=== PATIENT | male | born 1990 | race Caucasian/White ===

== ENCOUNTER 2021-02-24 06:20 | Inpatient (IN) | payer BC, SELFPAY ==
[2021-02-24] VITALS (15 sets, daily range): BP systolic 108–151; BP diastolic 55–80; PULSE 62–95; RESP 16–20; TEMP 36.1–37.5; O2SAT 96–100; BMI 26.1
--- NOTE | ~2021-02-24 | CT_ITS ---
EXAMINATION: CT ABDOMEN AND PELVIS WITH CONTRAST CLINICAL INFORMATION: Right lower quadrant pain COMPARISON: None TECHNIQUE: Multidetector volumetric images were obtained from the superior aspect of the liver through the pubic symphysis following administration 85 mL of Omnipaque 350 intravenous contrast. Sagittal and coronal reformatted images were obtained on the technologist's workstation. Oral contrast: No This CT examination was performed using dose optimization techniques as appropriate, variously including the following: *Automated exposure control *Adjustment of mA and/or kV according to patient size (this includes techniques or standardized protocols for targeted exams where dose is matched to indication/reason for exam; i.e. extremities or head) *Use of iterative reconstruction technique DLP: 491 mGy-cm FINDINGS: LUNG BASES: The visualized lung bases are unremarkable. LIVER, GALLBLADDER, AND BILIARY TREE: The liver is normal in size, shape, and attenuation. No focal hepatic lesion or biliary ductal dilatation is present. The gallbladder is unremarkable with no evidence of radiopaque gallstones, gallbladder wall thickening, or obvious pericholecystic inflammatory changes. PANCREAS: Unremarkable. No mass or peripancreatic inflammatory change. SPLEEN: Unremarkable. ADRENAL GLANDS: Right adrenal gland unremarkable. There is a lipid rich left adrenal gland adenoma measuring approximately 1.1 x 1.7 x 1.1 cm per KIDNEYS AND URETERS: The kidneys are normal in size, shape, and attenuation. No hydronephrosis, hydroureter, or calculi seen. No perinephric stranding. There is a subcentimeter cyst seen upper pole of the left kidney. BLADDER: Unremarkable. GASTROINTESTINAL TRACT: No dilated loops of large or small bowel are evident. No significant free fluid. No free air. Within the right lower quadrant there appears to be an appendicolith with dilated appendix and periappendiceal soft tissue stranding consistent with acute appendicitis. ABDOMINAL WALL: No significant hernia is appreciated. LYMPH NODES: No lymphadenopathy appreciated. VASCULAR: Unremarkable. PELVIC VISCERA: No suspicious pelvic mass. OSSEOUS STRUCTURES: Unremarkable. CT/CT abdomen pelvis w con IMPRESSION: Findings suspicious for acute appendicitis. No evidence of obstructive uropathy. Left adrenal gland lipid rich adenoma.
--- NOTE | 2021-02-24 07:00 | ED.ABDPAIN ---
HPI - Abdominal Pain General Chief Complaint: Abdominal Pain Stated Complaint: abdominal pain, vomiting Time Seen by Provider: 02/24/21 06:58 Source: patient Mode of arrival: ambulatory Limitations: no limitations History of Present Illness HPI narrative: This is a 50 years old male presented to the ED with 24 hour history of right lower quadrant abdominal pain agitated today chest, nausea vomiting MD elicited complaint: abdominal pain Pertinent past history: none Onset (ago): day(s) (1 day) Pain Consistency: constant Location: RLQ Severity: moderate Quality: cramping Exacerbating factors: nothing Relieving factors: nothing Related Data Allergies Allergy/AdvReac Type Severity Reaction Status Date / Time sulfamethoxazole Allergy Hives Verified 02/24/21 06:31 [From ] trimethoprim [From ] Allergy Hives Verified 02/24/21 06:31 Review of Systems Review of Systems Yes all other systems are reviewed and are negative Cardiovascular: Reports no additional cardiovascular complaints Respiratory: Reports no additional respiratory complaints Reports system reviewed and no additional complaints, except as documented Physical Exam Vital Signs: Vital Signs: Last Vital Signs Temp 98.8 F 02/24/21 08:17 Pulse 64 02/24/21 09:30 Resp 16 02/24/21 09:30 BP 124/65 02/24/21 09:30 Pulse Ox 100 02/24/21 09:30 Body Mass Index 26.1 Const: General: cooperative and anxious Orientation/consciousness: oriented to person, oriented to place, oriented to time and patient oriented x3 HENMT: Head: Yes normal to inspection and Yes No palpable skull fracture present Eyes: General: appearance normal, both eyes and all related structures Visual Rayo: normal visual rayo by confrontation Eyelids: Yes eyelids normal Neck: Neck: Yes normal visual inspection, Yes full ROM and Yes no lymphadenopathy Chest: Chest palpation & inspection: normal inspection of the chest Resp: Effort & Inspection: normal respiratory effort and able to speak in complete sentences Cardio: Rate: regular rate Rhythm: regular rhythm GI: Inspection: Yes normal to inspection Palpation (GI): Soft to palpation and Tenderness to palpation present (GI) in the RLQ Skin: General skin exam: no rashes or lesions noted and turgor normal Neuro: General: oriented to person, oriented to place, oriented to time and patient oriented x3 Course Course Course Narrative: CT scan consistent with acute appendicitis, case was discussed with the on-call surgeon Dr. Malinda Arora MDM - Abdominal Pain Lab Data Attestation: I reviewed the patient's lab results. Result diagrams: 02/24/21 07:03 02/24/21 07:03 Labs: Lab Results 02/24/21 02/24/21 02/24/21 Range/Units 07:03 07:03 07:03 WBC 17.8 H (4.8-10.8) X10*3/uL RBC 4.90 (4.60-5.80) X10*6/uL Hgb 15.9 (14.0-18.0) g/dl Hct 45.0 (42-52) % MCV 91.8 (80-98) fL MCH 32.4 (27.0-33.0) pg MCHC 35.3 (31.0-36.0) g/dl RDW 11.4 (11.0-16.0) % Plt Count 337 (160-400) X10*3/uL MPV 9.1 L (9.4-12.4) fL Immature Gran % (Auto) 0.3 (0.0-0.4) % Neut % (Auto) 87.7 H (45-73) % Lymph % (Auto) 6.2 L (20-40) % [place] % (Auto) 5.5 (2-11) % Eos % (Auto) 0.1 (0-4) % Baso % (Auto) 0.2 (0-2) % Lymph # (Auto) 1.1 L (1.2-4.9) X10*3/uL [place] # (Auto) 1.0 (0.1-1.2) X10*3/uL Eos # (Auto) 0.0 (0.0-0.4) X10*3/uL Baso # (Auto) 0.0 (0.0-0.2) X10*3/uL Abs Immat Gran (auto) 0.06 H (0.00-0.03) X10*3/uL Absolute Neuts (auto) 15.6 H (2.0-8.3) X10*3/uL Absolute Nucleated RBC 0.000 (0.0-0.012) X10*3/uL Nucleated RBC % (auto) 0.0 (0.0-0.2) /100WBC Sodium 137 (135-145) mmol/L Potassium 5.0 (3.3-5.1) mmol/L Chloride 103 (96-108) mmol/L Carbon Dioxide 25 (22-29) mmol/L Anion Gap 14 (12-20) BUN 13 (9-16) mg/dL Creatinine 1.27 (0.5-1.4) mg/dL Estim Creat Clear Calc 76.7 Estimated GFR > 60 Random Glucose 121 H (60-115) mg/dL Calcium 9.7 (8.4-10.2) mg/dL Total Bilirubin 1.8 H (0.0-1.0) mg/dL AST 24 (5-37) U/L ALT 21 (0-40) U/L Alkaline Phosphatase 56 (39-117) U/L Total Protein 7.2 (6.5-8.0) g/dL Albumin 4.6 (3.5-5.0) g/dL Lipase 62 (8-78) U/L Urine Color Urine Appearance Urine pH (5.0-8.0) Ur Specific [place] (1.005-1.025) Urine Protein (NEG-TRACE) MG/DL Urine Glucose (UA) (NEG) MG/DL Urine Ketones (NEG) MG/DL Urine Blood (NEG) Urine Nitrite (NEG) Ur Leukocyte Esterase (NEG) 02/24/21 Range/Units 08:08 WBC (4.8-10.8) X10*3/uL RBC (4.60-5.80) X10*6/uL Hgb (14.0-18.0) g/dl Hct (42-52) % MCV (80-98) fL MCH (27.0-33.0) pg MCHC (31.0-36.0) g/dl RDW (11.0-16.0) % Plt Count (160-400) X10*3/uL MPV (9.4-12.4) fL Immature Gran % (Auto) (0.0-0.4) % Neut % (Auto) (45-73) % Lymph % (Auto) (20-40) % [place] % (Auto) (2-11) % Eos % (Auto) (0-4) % Baso % (Auto) (0-2) % Lymph # (Auto) (1.2-4.9) X10*3/uL [place] # (Auto) (0.1-1.2) X10*3/uL Eos # (Auto) (0.0-0.4) X10*3/uL Baso # (Auto) (0.0-0.2) X10*3/uL Abs Immat Gran (auto) (0.00-0.03) X10*3/uL Absolute Neuts (auto) (2.0-8.3) X10*3/uL Absolute Nucleated RBC (0.0-0.012) X10*3/uL Nucleated RBC % (auto) (0.0-0.2) /100WBC Sodium (135-145) mmol/L Potassium (3.3-5.1) mmol/L Chloride (96-108) mmol/L Carbon Dioxide (22-29) mmol/L Anion Gap (12-20) BUN (9-16) mg/dL Creatinine (0.5-1.4) mg/dL Estim Creat Clear Calc Estimated GFR Random Glucose (60-115) mg/dL Calcium (8.4-10.2) mg/dL Total Bilirubin (0.0-1.0) mg/dL AST (5-37) U/L ALT (0-40) U/L Alkaline Phosphatase (39-117) U/L Total Protein (6.5-8.0) g/dL Albumin (3.5-5.0) g/dL Lipase (8-78) U/L Urine Color YELLOW Urine Appearance CLEAR Urine pH 7.0 (5.0-8.0) Ur Specific [place] <= 1.005 (1.005-1.025) Urine Protein NEG (NEG-TRACE) MG/DL Urine Glucose (UA) NEG (NEG) MG/DL Urine Ketones 15 (NEG) MG/DL Urine Blood NEG (NEG) Urine Nitrite NEG (NEG) Ur Leukocyte Esterase NEG (NEG) Discharge Plan Discharge Clinical Impression: Acute appendicitis Patient Disposition: Admitted As Inpatient [facility] Past Medical History [facility] Narrative: Hysterectomy, bilateral mastectomy Social History Social History Alcohol intake: current Alcohol intake frequency: a few times a month Alcohol type: beer Smoking Status: Never smoker Use of substances other than those prescribed or required for medical reasons: Yes Substance Use Type: Marijuana Last Used Substance: Hours (ago) Advance Directives: No Advance Directives Information Provided: No
[2021-02-24] MEDS: Morphine Sulfate 4 MG/ML CARTRIDGE IVPUSH ×4 (07:13→23:28)
[2021-02-24] MEDS: ondansetron HCL 4 MG/2 ML VIAL IVPUSH ×2 (07:13→13:17)
[2021-02-24 07:14] LABS: MANUAL DIFF FLAG NO
[2021-02-24 07:16] LABS: Basophils Percent Auto 0.2 % (0-2); Eosinophils Percent Auto 0.1 % (0-4); Hemoglobin 15.9 g/dl (14.0-18.0); Imm Gran Abs Auto 0.06 X10*3/uL (0.00-0.03); Imm Gran Pct Auto 0.3 % (0.0-0.4); Lymphocytes Absolute Auto 1.1 X10*3/uL (1.2-4.9); Lymphocytes Percent Auto 6.2 % (20-40); Mean Corpuscular HGB Conc 35.3 g/dl (31.0-36.0); Mean Corpuscular Hemoglobin 32.4 pg (27.0-33.0); Mean Corpuscular Volume 91.8 fL (80-98); Mean Platelet Volume 9.1 fL (9.4-12.4); Monocytes Percent Auto 5.5 % (2-11); Neutrophils Absolute Auto 15.6 X10*3/uL (2.0-8.3); Neutrophils Percent Auto 87.7 % (45-73); Platelet Count 337 X10*3/uL (160-400); Red Cell Distribution Width 11.4 % (11.0-16.0); White Blood Count 17.8 X10*3/uL (4.8-10.8)
[2021-02-24] MEDS: 0.9 % Sodium Chloride 1,000 ML 999 ML IVCONT (07:16)
[2021-02-24 07:40] LABS: Alanine Aminotransferase 21 U/L (0-40); Albumin Level 4.6 g/dL (3.5-5.0); Alkaline Phosphatase 56 U/L (39-117); Anion Gap 14 (12-20); Aspartate Amino Transferase 24 U/L (5-37); Bilirubin Total 1.8 mg/dL (0.0-1.0); Blood Urea Nitrogen 13 mg/dL (9-16); Calcium 9.7 mg/dL (8.4-10.2); Carbon Dioxide 25 mmol/L (22-29); Chloride 103 mmol/L (96-108); Creatinine Clr Calc Pharmacy 76.7; Estimated Glomerular Filt Rate > 60; Glucose Random 121 mg/dL (60-115); Lipase 62 U/L (8-78); Sodium 137 mmol/L (135-145); Total Protein 7.2 g/dL (6.5-8.0)
[2021-02-24] MEDS: HYDROmorphone HCl 0.5 MG/0.5 ML SYRINGE IVPUSH ×2 (08:17→10:00)
[2021-02-24 08:35] LABS: Glucose Urine UA NEG (NEG); Leukocyte Esterase Urine NEG (NEG); Nitrite Urine NEG (NEG); Specific Gravity - Urine <= 1.005 (1.005-1.025); Urine Blood NEG (NEG); Urine Ketones 15 MG/DL (NEG); Urine Protein NEG (NEG-TRACE)
--- NOTE | 2021-02-24 08:35 | PC.NURSE ---
report taken from Hardik SCHULTZ. Pt in bed, moaning in pain, occasionally tearful. pt given 4mg Morphine for 9/ RLQ pain. pt reported it helped for about 30 min bringing pain to 4/10.. pt given Dilaudid for 9/ pain. Awaiting CT scan. Partner at bedside.
[2021-02-24 08:38] LABS: Appearance Urine CLEAR; Color Urine YELLOW
[2021-02-24] MEDS: iohexoL 350 MG/ML 100 ML INFUS..BTL IV (08:59)
[2021-02-24] MEDS: Piperacillin Sodium/Tazobactam 3.375 GM in 0.9 % Sodium Chloride 50 ML IV (10:00)
--- NOTE | 2021-02-24 10:30 | PM.HPGS ---
History of Present Illness History of Present Illness Date of Service: 02/24/21 Chief complaint: abdominal pain, vomiting Narrative: Sonido Hines is a 30 year old male Who was feeling well yesterday morning, but around mid day developed right lower quadrant abdominal pain that steadily worsened and began to radiate up into his chest and around the right side his back. He developed nausea and vomiting during the night. He had chills but no fever. He reports 1 episode of similar pain that occurred about 2 years ago. Workup at that time was unrevealing and the pain ultimately resolved. In the emergency department today, CT scan of the abdomen and pelvis was obtained and was consistent with acute appendicitis. White blood count was elevated at 17.8. Review of Systems Constitutional: Constitutional: Reports chills and Denies fever(s) Cardiovascular: Cardiovascular: Denies chest pain and Denies palpitations Respiratory: Respiratory: Reports no additional respiratory complaints Gastrointestinal: Gastrointestinal: Reports as per HPI Genitourinary: Genitourinary: Denies dysuria and Reports urinary hesitancy Musculoskeletal: Musculoskeletal: Reports back pain (Associated with) Psychiatric: Psychiatric: Reports anxiety Endocrine: Endocrine: Denies palpitations Hematologic/Lymphatic: Hematologic/Lymphatic: Reports no additional hematologic/lymphatic complaints [facility] Past Medical History Medical History Gjddez-gn-vkyj transgender person Surgical History Surgical History History of bilateral mastectomy Social History Social History Alcohol intake: current Alcohol intake frequency: a few times a month Alcohol type: beer Smoking Status: Never smoker Use of substances other than those prescribed or required for medical reasons: Yes Substance Use Type: Marijuana Last Used Substance: Hours (ago) Advance Directives: No Advance Directives Information Provided: No Meds Allergies Allergy/AdvReac Type Severity Reaction Status Date / Time sulfamethoxazole Allergy Hives Verified 02/24/21 06:31 [From ] trimethoprim [From ] Allergy Hives Verified 02/24/21 06:31 Home Medications Medication Instructions Recorded Confirmed Last Taken Type testosterone 80 mg IM QWEEK 02/24/21 02/24/21 02/18/21 History Physical Exam Vital Signs: Vital Signs: Last Vital Signs Temp 98.8 F 02/24/21 08:17 Pulse 70 02/24/21 10:00 Resp 18 02/24/21 10:00 BP 130/77 02/24/21 10:00 Pulse Ox 100 02/24/21 09:30 Body Mass Index 26.1 Const: General: cooperative and healthy appearing HENMT: Head: Yes normocephalic and Yes atraumatic Eyes: Conjunctivae: conjunctivae normal EOM: EOMs intact bilaterally Neck: Neck: Yes trachea midline and Yes supple Resp: Effort & Inspection: normal respiratory effort Auscultation: clear to auscultation bilaterally Cardio: Rate: regular rate Rhythm: regular rhythm GI: Other: Soft, nondistended, active bowel sounds, no palpable masses, generally tender with relative sparing of the left upper quadrant and most significant tenderness in the right lower quadrant, mild rebound Skin: Other: Normal color, warm Psych: Affect: normal affect Thought process: Normal thought process present Insight: Good insight present (Psych) Results Results Labs: Short CBC 02/24/21 Range/Units 07:03 WBC 17.8 H (4.8-10.8) X10*3/uL Hgb 15.9 (14.0-18.0) g/dl Hct 45.0 (42-52) % Plt Count 337 (160-400) X10*3/uL BMP 02/24/21 07:03 Sodium 137 Potassium 5.0 Chloride 103 Carbon Dioxide 25 BUN 13 Creatinine 1.27 Calcium 9.7 Liver Function 02/24/21 Range/Units 07:03 Total Bilirubin 1.8 H (0.0-1.0) mg/dL AST 24 (5-37) U/L ALT 21 (0-40) U/L Alkaline Phosphatase 56 (39-117) U/L Albumin 4.6 (3.5-5.0) g/dL Urine 02/24/21 Range/Units 08:08 Urine Color YELLOW Urine Appearance CLEAR Urine pH 7.0 (5.0-8.0) Ur Specific [place] <= 1.005 (1.005-1.025) Urine Protein NEG (NEG-TRACE) MG/DL Urine Glucose (UA) NEG (NEG) MG/DL CT scan of abdomen and pelvis impression: IMPRESSION: Findings suspicious for acute appendicitis. No evidence of obstructive uropathy. Left adrenal gland lipid rich adenoma. Dictated By:LYN ZUNIGA V MDSigned By:<Electronically signed by LYN ZUNIGA MD in OV> Assessment and Plan (1) Acute appendicitis: Status: Acute 30-year-old male with acute appendicitis with appendicoliths. We discussed treatment options including antibiotic therapy which is not recommended in the presence of appendicoliths, open appendectomy and laparoscopic appendectomy with potential need to convert to open. We reviewed risks of the surgery including but not limited to error in diagnosis, incisional hernia, infection, bleeding, DVT and PE, and appendiceal stump leak. He wishes to proceed with surgery. This will be done later today. We discussed the anticipated course of recovery. Procedures Date of Service Date of Service: 02/24/21
--- NOTE | 2021-02-24 11:33 | HO.ANESPROP2 ---
FORM[facility]LY [facility] Active Problems Active Problems: All Active Problems (Updated 02/24/21 @ 09:47 by Jorge Sanchez MD) Acute appendicitis (Acute) Past Medical History Medical History Azrrqi-bl-xohy transgender person Surgical History Surgical History History of bilateral mastectomy Social History Social History Alcohol intake: current Alcohol intake frequency: a few times a month Alcohol type: beer Smoking Status: Never smoker Use of substances other than those prescribed or required for medical reasons: Yes Substance Use Type: Marijuana Last Used Substance: Hours (ago) Advance Directives: No Advance Directives Information Provided: No Meds Allergies Allergy/AdvReac Type Severity Reaction Status Date / Time sulfamethoxazole Allergy Hives Verified 02/24/21 06:31 [From ] trimethoprim [From ] Allergy Hives Verified 02/24/21 06:31 Active Medications: Current Medications Generic Name Dose Route Start Last Admin Trade Name Freq PRN Reason Stop Dose Admin Acetaminophen 650 mg 02/24/21 12:00 Acetaminophen 325 Mg Tablet PO Q6H ALTAF Dextrose/Lactated Ringer's 1,000 mls @ 100 mls/hr 02/24/21 11:30 D5lr IVCONT .Q10H ALTAF Non-Formulary Medication 80 mg 02/25/21 10:00 Testosterone IM Q7D ALTAF Ondansetron HCl 4 mg 02/24/21 11:02 Ondansetron Hcl 4 Mg/2 Ml Vial IVPUSH Q8H PRN Nausea Home Medications Medication Instructions Recorded Confirmed Last Taken Type testosterone 80 mg IM QWEEK 02/24/21 02/24/21 02/18/21 History Exam Exam Date and Time: February 24, 2021 1133 Height,Weight and Vital Signs: Height 5 ft 6 in Weight 73.4 kg Last Vital Signs Temp 98.8 F 02/24/21 08:17 Pulse 70 02/24/21 10:00 Resp 18 02/24/21 10:00 BP 110/55 L 02/24/21 10:45 Pulse Ox 100 02/24/21 09:30 Pertinent Lab Results Pertinent Lab Results: Laboratory Tests 02/24/21 02/24/21 02/24/21 07:03 07:03 07:03 WBC 17.8 H RBC 4.90 Hgb 15.9 Hct 45.0 MCV 91.8 MCH 32.4 MCHC 35.3 RDW 11.4 Plt Count 337 MPV 9.1 L Immature Gran % (Auto) 0.3 Neut % (Auto) 87.7 H Lymph % (Auto) 6.2 L [place] % (Auto) 5.5 Eos % (Auto) 0.1 Baso % (Auto) 0.2 Lymph # (Auto) 1.1 L [place] # (Auto) 1.0 Eos # (Auto) 0.0 Baso # (Auto) 0.0 Abs Immat Gran (auto) 0.06 H Absolute Neuts (auto) 15.6 H Absolute Nucleated RBC 0.000 Nucleated RBC % (auto) 0.0 Sodium 137 Potassium 5.0 Chloride 103 Carbon Dioxide 25 Anion Gap 14 BUN 13 Creatinine 1.27 Estim Creat Clear Calc 76.7 Estimated GFR > 60 Random Glucose 121 H Calcium 9.7 Total Bilirubin 1.8 H AST 24 ALT 21 Alkaline Phosphatase 56 Total Protein 7.2 Albumin 4.6 Lipase 62 Urine Color Urine Appearance Urine pH Ur Specific [place] Urine Protein Urine Glucose (UA) Urine Ketones Urine Blood Urine Nitrite Ur Leukocyte Esterase 02/24/21 08:08 WBC RBC Hgb Hct MCV MCH MCHC RDW Plt Count MPV Immature Gran % (Auto) Neut % (Auto) Lymph % (Auto) [place] % (Auto) Eos % (Auto) Baso % (Auto) Lymph # (Auto) [place] # (Auto) Eos # (Auto) Baso # (Auto) Abs Immat Gran (auto) Absolute Neuts (auto) Absolute Nucleated RBC Nucleated RBC % (auto) Sodium Potassium Chloride Carbon Dioxide Anion Gap BUN Creatinine Estim Creat Clear Calc Estimated GFR Random Glucose Calcium Total Bilirubin AST ALT Alkaline Phosphatase Total Protein Albumin Lipase Urine Color YELLOW Urine Appearance CLEAR Urine pH 7.0 Ur Specific [place] <= 1.005 Urine Protein NEG Urine Glucose (UA) NEG Urine Ketones 15 Urine Blood NEG Urine Nitrite NEG Ur Leukocyte Esterase NEG Airway Mallampati Class: II TM Dist: >3cm Neck ROM: Full
[2021-02-24] MEDS: fentaNYL citrate/PF 100 MCG/2 ML VIAL 50 MCG IVPUSH ×2 (13:12→13:17)
--- NOTE | 2021-02-24 13:29 | W.PM.OPN ---
Operative Note Operative Note Date of Service: 02/24/21 Narrative: Date of Service: 02/24/21 Pre-op diagnosis: Acute appendicitis Post-op diagnosis: same Procedure: Laparoscopic appendectomy Surgeon: Ivory Arora MD Anesthesia: GETA Was an Clinical Pharmacologist used for this Procedure?: No Estimated blood loss (mL): 5 Pathology: other (Appendix) Condition: stable Disposition: PACU This is a 30-year-old male who had onset of right lower quadrant abdominal pain around mid day yesterday. The pain persisted and worsened and he presented to the emergency department where workup was consistent with acute appendicitis. After reviewing treatment options, he elected to proceed with laparoscopic appendectomy. Procedure in detail: With the patient in the supine position after induction of adequate general anesthesia, time-out procedure was performed. 2 g of cefotetan were infused for antibiotic prophylaxis and each trocar site was infiltrated with local anesthetic prior to making incisions. The abdomen was prepped with ChloraPrep and was draped sterilely. An infraumbilical incision was made and was carried down to the level of the fascia. The fascia was elevated in the midline with a Sarah clamp and holding sutures of 0 Polysorb were placed on either side. The Sarah was then released and the fascia was split in the midline. The peritoneal cavity was entered. The [place] trocar was inserted and stabilized with the fascial sutures. The 0 degree laparoscopic was inserted the peritoneal cavity was visualized. No abnormalities were identified initially. 5 mm trocars were placed laterally in the left lower quadrant and in the midline suprapubic position under direct vision. Blunt graspers were then inserted. The cecum was carefully elevated and the appendix was identified lying posterior to the cecum. It was grasped with a blunt grasper through the lower midline port and was elevated. The mesoappendix was identified. The 5 mm laparoscopic LigaSure was then employed to divide the mesoappendix down to the base of the appendix.. The operative field was inspected to ensure that good hemostasis was obtained. This was confirmed. The laparoscoped was then removed and reinserted through the left lower quadrant port and the laparoscopic TINY, 30 mm purple load was inserted through the [place] trocar. The stapler was angled and placed across the base of the appendix at the junction with the cecum. The device was closed. The jaws were inspected to ensure that no extraneous tissues were included. The device was then fired, opened and removed. The staple line on the cecum was inspected and was noted to be intact. No bleeding was noted. The specimen pouch was inserted through the [place] trocar. The appendix placed into the pouch and the pouch and appendix were then removed along with the Castillo trocar. The [place] trocar was then reinserted and the laparoscopic was placed back through it. The operative field was visualized. Again, was confirmed that there was no bleeding from the staple line on the cecum. The right lower quadrant was copiously irrigated with saline solution. The 5 mm trocars were then removed under direct vision. There was no bleeding from trocar sites. Insufflation was discontinued and gas was allowed to escape from the peritoneal cavity. The [place] trocar was then removed. Fascia at the [place] site was closed with [id number] suture of 0 Polysorb and the holding sutures were tied to 1 another. Skin incisions were closed with subcuticular sutures of 4-0 Polysorb and Steri-Strips and adhesive dressings were applied. He tolerated the procedure well and was transported to the recovery room in stable condition. Sponge instrument counts were correct. There were no immediate complications.
[2021-02-24] MEDS: Lactated Ringers 1,000 ML 100 ML IVCONT ×2 (14:30→23:33)
[2021-02-24] MEDS: Acetaminophen 325 MG TABLET 650 MG PO (18:09)
[2021-02-24] MEDS: oxyCODONE HCl Immed Release 5 MG TABLET 10 MG PO (20:59)
[2021-02-25] VITALS: BP 119/51; PULSE 88; RESP 18; TEMP 35.6; O2SAT 98
[2021-02-25] MEDS: Docusate Sodium 100 MG CAPSULE PO (00:51)
[2021-02-25] MEDS: Acetaminophen 325 MG TABLET 650 MG PO ×3 (00:51→12:17)
[2021-02-25] MEDS: LORazepam 1 MG TABLET PO (00:52)
[2021-02-25 03:55] VITALS: BP 102/54; PULSE 72; RESP 16; O2SAT 97
[2021-02-25 04:00] VITALS: BP 102/54; PULSE 72; RESP 16; TEMP 35.6; O2SAT 97
[2021-02-25] MEDS: Morphine Sulfate 4 MG/ML CARTRIDGE IVPUSH ×2 (06:22→09:58)
[2021-02-25] MEDS: oxyCODONE HCl Immed Release 5 MG TABLET 10 MG PO (07:29)
[2021-02-25 07:37] VITALS: BP 106/55; PULSE 68; RESP 18; TEMP 36.3; O2SAT 96
[2021-02-25] MEDS: ondansetron HCL 4 MG/2 ML VIAL IVPUSH (09:11)
[2021-02-25 09:58] VITALS: RESP 19
[2021-02-25] MEDS: Lactated Ringers 1,000 ML 100 ML IVCONT (10:02)
--- NOTE | 2021-02-25 11:07 | PM.PNGS ---
Subjective Subjective Date of Service: 02/25/21 Interval history: Reports some incisional pain, but feeling much better than he did prior to surgery. Feels ready for discharge home today. Physical Exam Vital Signs: Vital Signs: Last Vital Signs Temp 97.4 F 02/25/21 07:37 Pulse 68 02/25/21 07:37 Resp 19 02/25/21 09:58 BP 106/55 L 02/25/21 07:37 Pulse Ox 96 02/25/21 07:37 Body Mass Index 26.1 Const: General: cooperative, no acute distress and alert Cardio: Rate: regular rate Rhythm: regular rhythm GI: Other: Soft, nondistended, dressings dry and intact, bowel sounds active Progress Note: A&P Assessment and plan (1) Acute appendicitis: Status: Acute Assessment and Plan: Doing well day 1 following laparoscopic appendectomy. He feels ready for discharge. We discussed postoperative care. He will follow up in the office in about 10-14 days. Fall Risk Details Current Medications: Current Medications Generic Name Dose Route Start Last Admin Trade Name Carrollq PRN Reason Stop Dose Admin Acetaminophen 650 mg 02/24/21 12:00 02/25/21 06:14 Acetaminophen 325 Mg Tablet PO 650 mg Q6H ALTAF Administration Docusate Sodium 100 mg 02/25/21 00:33 02/25/21 00:51 Docusate Sodium 100 Mg Capsule PO 100 mg BID PRN Administration Constipation Lactated Ringer's 1,000 mls @ 100 mls/hr 02/24/21 11:45 02/25/21 10:02 Lr IVCONT 100 mls/hr .Q10H ALTAF Administration Morphine Sulfate 4 mg 02/24/21 14:04 02/25/21 09:58 Morphine Sulfate 4 Mg/Ml Cartridge IVPUSH 4 mg Q3H PRN Administration Pain, severe Non-Formulary Medication 80 mg 02/25/21 10:00 02/25/21 10:16 Testosterone IM Not Given Q7D ALTAF Ondansetron HCl 4 mg 02/24/21 11:02 02/25/21 09:11 Ondansetron Hcl 4 Mg/2 Ml Vial IVPUSH 4 mg Q8H PRN Administration Nausea Oxycodone HCl 10 mg 02/24/21 14:04 02/25/21 07:29 Oxycodone Hcl Immed Release 5 Mg Tablet PO 10 mg Q4H PRN Administration Pain, Severe (Pain Scale 7-10) Oxycodone HCl 5 mg 02/25/21 05:51 Oxycodone Hcl Immed Release 5 Mg Tablet PO Q4H PRN Pain, Moderate (Pain Scale 4-6 Time Spent With Patient Time: Total time spent is greater than 50% in coordination of care (as documented) at patient's floor/unit and/or counseling patient: Time with patient: less than 15 minutes Procedures Date of Service Date of Service: 02/25/21
[2021-02-25 11:16] VITALS: BP 117/54; PULSE 69; RESP 16; TEMP 36.3; O2SAT 99
--- NOTE | 2021-02-25 11:38 | MHC.CM.PN ---
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
--- NOTE | 2021-02-25 18:46 | PM.DS ---
DS: Providers Provider Date of Service: 02/25/21 Date of admission: 02/24/21 11:20 Primary care physician: Unknown Physician DS: Diagnosis Discharge Diagnosis (1) Acute appendicitis: Status: Acute DS: Medications Discharge Medications Home Medications: Home Medications Medication Instructions Recorded Confirmed testosterone 80 mg IM QWEEK 02/24/21 02/24/21 Previous Rx's Medication Instructions Recorded ondansetron 4 mg PO Q8H PRN #5 ea 02/25/21 oxycodone 5 mg PO Q4H PRN #14 tab 02/25/21 DS: Summary Hospital Course Hospital Course: This is a 30-year-old male who presented to the emergency department with a 1 day history of right lower quadrant abdominal pain associated with nausea vomiting and chills, but no fever. CT scan of the abdomen and pelvis was obtained and was consistent with acute appendicitis. Treatment options were reviewed and he elected to proceed with laparoscopic appendectomy. On the day of admission, he was taken to the operating room where laparoscopic appendectomy was performed. He tolerated the procedure well and was able to tolerate a solid diet by the following morning. He had good pain control on acetaminophen and oxycodone. He was discharged home on the 1st postoperative day. Time Spent with Patient Time attestation: Total time spent providing and/or coordinating discharge services: Discharge coordination time: Less than 30 minutes Quality: Stroke Does the patient have a stroke diagnosis?: No Physical Exam Vital Signs: Vital Signs: Last Vital Signs Temp 97.4 F 02/25/21 11:16 Pulse 69 02/25/21 11:16 Resp 16 02/25/21 11:16 BP 117/54 L 02/25/21 11:16 Pulse Ox 99 02/25/21 11:16 Body Mass Index 26.1 Const: General: cooperative, comfortable and no acute distress Resp: Effort & Inspection: normal respiratory effort Auscultation: clear to auscultation bilaterally Cardio: Rate: regular rate Rhythm: regular rhythm GI: Other: Soft, flat, small adhesive dressings in place over trocar site incisions, nondistended, active bowel sounds DS: Data Data Completed and Pending Pending studies at discharge: Pending at discharge 02/24/21 12:43 Surgical [PTH] Routine Discharge Plan Discharge Patient Disposition: Home, Self-Care Discharge Diagnosis: Acute appendicitis Referrals: Otf Foster MD [Physician] - 1 Week (follow up after laparoscopic cholecystectomy) Physician,Unknown [Primary Care Provider] - 1 Week Discharge Medications: New oxycodone 5 mg Tablet 5 mg PO Q4H PRN (Reason: Pain, Severe (Pain Scale 7-10)) Qty: 14 RF: 0 ondansetron 4 mg film 4 mg PO Q8H PRN (Reason: nausea and vomiting) Qty: 5 RF: 0 Continued testosterone 100 mg/mL Suspension 80 mg IM QWEEK RF: 0 Discharge Orders: Discharge Order (Routine); Ordered 02/25/21 Ordered By: Ivory Arora Activity on Discharge: No Contact sports Stand Alone Forms: Patient Portal Discharge page, Work/School Release Activity Restrictions/Additional Instructions: Remove your bandages Friday night or Friday. Try to leave the small tapes on the incisions but do not worry if they come off. You may shower after removing the bandages. Take acetaminophen 650 mg every 6 hours for the first two to three days after surgery and take oxycodone as prescribed if needed. Care Plan Goals: Return to usual activities and employment Health Concerns: recovery after laparoscopic appendectomy Plan of Treatment: Rest, avoid heavy lifting and strenuous activity, increase activity as tolerated, return to work 10-14 days. Assessment: Improving Discharge Date/Time: 02/25/21 13:08
--- NOTE | 2021-02-26 06:59 | HO.POSTANES ---
Post Anesthesia Evaluation Post Anesthesia Evaluation Vital Signs: 117/54
== END 2021-02-25 13:08 | disposition home or self-care (01) | DRG 225 ==
LOC: HO.ED 09:47 → HO.EDOVER 11:22 → HO.S3 11:54
PROVIDERS: Admitting Provider Surgery; Emergency Provider Emergency Medicine; PCP Nurse Practitioner Family; Visit Provider Surgery
PROC: 0DTJ4ZZ Resection of Appendix, Percutaneous Endoscopic Approach (ICD-10-PCS; CPT 44970; principal; 2021-02-24 11:15)
DX: K35.80 Unspecified acute appendicitis (principal); F64.1 Dual role transvestism; Z79.899 Other long term (current) drug therapy
CPT/HCPCS: 36415; 74177; 80053; 81003; 83690; 85025; 88304; 96365; 96375; 99024; 99285; J1100; J1170; J1885; J2250; J2270; J2405; J2543; J3010; Q9967

== ENCOUNTER → 2021-03-02 11:13 | Outpatient (BNVA) | payer BC, SELFPAY | PROVIDERS: Visit Provider Surgery ==

== ENCOUNTER 2022-11-22 08:43 | Emergency (ER) | payer OTHER, SELFPAY ==
[2022-11-22 09:14] VITALS: BP 147/84; PULSE 98; RESP 20; TEMP 36.6; O2SAT 99; BMI 26.6
[2022-11-22 09:33] LABS: Basophils Percent Auto 0.2 % (0-2); Eosinophils Absolute Auto 0.1 X10*3/uL (0.0-0.4); Eosinophils Percent Auto 0.4 % (0-4); Hematocrit 51.3 % (42.0-52.0); Hemoglobin 18.1 g/dl (14.0-18.0); Imm Gran Abs Auto 0.05 X10*3/uL (0.00-0.03); Imm Gran Pct Auto 0.3 % (0.0-0.4); Lymphocytes Absolute Auto 0.4 X10*3/uL (1.2-4.9); Lymphocytes Percent Auto 2.4 % (20-40); MANUAL DIFF FLAG SCAN; Mean Corpuscular HGB Conc 35.3 g/dl (31.0-36.0); Mean Corpuscular Hemoglobin 31.9 pg (27.0-33.0); Mean Corpuscular Volume 90.5 fL (80.0-98.0); Mean Platelet Volume 9.2 fL (9.4-12.4); Monocytes Absolute Auto 0.5 X10*3/uL (0.1-1.2); Neutrophils Absolute Auto 16.7 x10*3/uL (2.0-8.3); Neutrophils Percent Auto 93.7 % (45-73); Platelet Count 302 X10*3/uL (160-400); Red Blood Count 5.67 X10*6/uL (4.60-5.80); Red Cell Distribution Width 11.5 % (11.0-16.0); SCAN SMEAR FLAG 1; White Blood Count 17.8 X10*3/uL (4.8-10.8)
[2022-11-22 09:51] LABS: COVID-19 Test Negative (Negative); IDNOW Serial# 55D5AD1C
[2022-11-22 09:53] LABS: Alanine Aminotransferase 21 U/L (0-40); Albumin Level 4.8 g/dL (3.5-5.0); Alkaline Phosphatase 55 U/L (39-117); Anion Gap 14 (12-20); Aspartate Amino Transferase 24 U/L (5-37); Bilirubin Direct 0.3 mg/dL (0.0-0.5); Bilirubin Total 1.2 mg/dL (0.0-1.0); Blood Urea Nitrogen 19 mg/dL (9-16); Calcium 9.8 mg/dL (8.4-10.2); Carbon Dioxide 23 mmol/L (22-29); Chloride 107 mmol/L (96-108); Creatinine Clr Calc Pharmacy 91.1; Estimated Glomerular Filt Rate > 60; Glucose Random 102 mg/dL (60-115); Sodium 139 mmol/L (135-145); Total Protein 7.4 g/dL (6.5-8.0)
[2022-11-22 09:59] LABS: IDNOW Serial# 6674DD1D; Influenza A Negative (Negative); Influenza B2 Positive (Negative)
--- NOTE | 2022-11-22 10:10 | ED.NAVMDI ---
HPI - Nausea/Vomiting/Diarrhea General Chief complaint: Nausea/Vomiting/Diarrhea Stated complaint: Vomiting/Diarrhea Time Seen by Provider: 11/22/22 10:08 Source: patient Mode of arrival: ambulatory Limitations: no limitations History of Present Illness HPI Narrative: 32 yo transgender patient here with complaints of vomiting/diarrhea, generalized abdominal pain since 04:00. Patient reports has been having several days of rhinorrhea. No cough, fever. Patient reports multiple episodes of vomiting unable tolerate p.o.. Patient took 1 dose of Zofran prior to arrival with continued symptoms MD elicited complaint: nausea, vomiting, diarrhea and abdominal pain Associated nausea: Yes Related Data Home Medications Medication Instructions Recorded Confirmed testosterone 100 mg/mL 80 mg IM QWEEK 02/24/21 02/24/21 intramuscular suspension Previous Rx's Medication Instructions Recorded ondansetron 4 mg oral soluble film 4 mg PO Q8H PRN nausea and 02/25/21 vomiting #5 ea oxycodone 5 mg tablet 5 mg PO Q4H PRN Pain, Severe (Pain 02/25/21 Scale 7-10) #14 tabs promethazine 25 mg rectal 25 mg CA Q6H PRN nausea and 11/22/22 suppository vomiting #12 ea Allergies Allergy/AdvReac Type Severity Reaction Status Date / Time sulfamethoxazole Allergy Hives Verified 02/24/21 06:31 [From ] trimethoprim [From ] Allergy Hives Verified 02/24/21 06:31 Review of Systems Review of Systems: Yes all other systems are reviewed and are negative Constitutional: Constitutional: Reports no additional constitutional complaints, Denies body ache(s), Denies chills, Denies fever(s), Denies headache(s) and Denies weakness Eyes: Eyes: Reports no additional eye complaints and Denies change in vision ENT: Reports system reviewed and no additional complaints, except as documented, Denies dizziness, Denies headache(s), Denies nasal congestion, Denies nasal discharge and Denies neck pain Cardiovascular: Cardiovascular: Reports no additional cardiovascular complaints, Denies chest pain, Denies leg edema and Denies dyspnea Respiratory: Respiratory: Reports no additional respiratory complaints, Denies cough and Denies dyspnea Gastrointestinal: Gastrointestinal: Reports no additional gastrointestinal complaints, Reports abdominal pain, Reports diarrhea, Reports nausea and Reports vomiting Genitourinary: Genitourinary: Denies urinary incontinence Musculoskeletal: Musculoskeletal: Reports no additional musculoskeletal complaints, Denies back pain, Denies arthralgias, Denies joint swelling, Denies neck pain, Denies numbness and Denies tingling Integumentary/Breasts: Skin/Breast: Reports system reviewed and no additional complaints, except as docu and Denies rash Neurologic: Reports system reviewed and no additional complaints, except as documented, Denies Abnormal speech present, Denies dizziness, Denies headache(s), Denies numbness, Denies tingling and Denies weakness PMFSH Past Medical History Attestation statement: The following information was validated with the patient. Source: old records reviewed and nursing notes reviewed Medical History [id number] transgender person Surgical History Acute appendicitis History of bilateral mastectomy History of laparoscopic appendectomy Social History Social History Household Members: Spouse Housing: Apartment Do you presently have visiting nurse or other home services: No Alcohol intake: current Alcohol intake frequency: a few times a month Alcohol type: beer Smoked in Last 30 Days: No Use of substances other than those prescribed or required for medical reasons: No Substance Use Type: Marijuana Any prior treatment program specific to substance use: No Advance Directives: No Advance Directives Information Provided: No service: No Current occupational status: employed Physical Exam Vital Signs: Vital Signs: Last Vital Signs Temp 97.8 F 11/22/22 09:14 Pulse 98 11/22/22 09:14 Resp 20 11/22/22 09:14 BP 147/84 H 11/22/22 09:14 Pulse Ox 99 11/22/22 09:14 O2 Del Method 11/22/22 09:14 BMI result Body Mass Index 26.6 Const: General: cooperative, healthy appearing, comfortable and no acute distress Orientation/consciousness: patient oriented x3 Limitations: no limitations HEENT: Head: Yes normal to inspection Ears: hearing grossly normal bilaterally General nose exam: Normal external nose present Face and sinus: Yes normal facial exam Mouth: Normal oral and palatal mucosa present Throat: Yes posterior oropharynx normal Eyes: General: appearance normal, both eyes and all related structures Pupils: Equal, round and reactive pupils present Neck: Neck: Yes normal visual inspection Chest: Chest palpation & inspection: normal inspection of the chest Resp: Effort & Inspection: normal respiratory effort Auscultation: clear to auscultation bilaterally Cardio: Rate: regular rate Rhythm: regular rhythm Peripheral pulses: Peripheral pulses 2+ throughout GI: Inspection: Yes normal to inspection Palpation (GI): Soft to palpation and Tenderness to palpation present (GI) (mild diffuse tenderness) Auscultation: normal bowel sounds Back/Spine/Pelvis: Thoracic/Lumbar Spine: thoracic and lumbar spine normal to inspection Skin: General skin exam: no rashes or lesions noted Neuro: General: patient oriented x3, no focal motor deficits and normal sensation to monofilament Cranial nerves: Yes Equal, round and reactive pupils present Cognition (Neuro): normal cognition Speech: No Abnormal speech present Gait exam (Neuro): Normal gait present Motor exam (neuro): 5/5 motor strength present throughout Extrem: General: Yes normal to inspection Course Course Course Narrative: Reviewed labs which show leukocytosis which is likely secondary to vomiting. Influenza screen is positive for influenza type B Patient receiving fluids. Will attempt p.o. trial post fluids Reevaluation(s) Reevaluation #1: 1145-Still having nausea. will give phenergan/benadryl and re-assess Reevaluation #2: 1445-patient able to tolerate sips. No additional vomiting episodes. Plan for discharge home with Phenergan suppositories. Patient has Zofran sublingual which he can also use. Recommend starting with clear liquids and advancing diet as tolerated. Medications Administered Discontinued Medications Generic Name Dose Route Start Last Admin Trade Name Freq PRN Reason Stop Dose Admin Diphenhydramine HCl 25 mg 11/22/22 11:43 11/22/22 11:51 Diphenhydramine Hcl 50 Mg/Ml Vial IVPUSH 11/22/22 11:44 25 mg ONCE ONE Administration Sodium Chloride 1,000 mls @ 999 mls/hr 11/22/22 10:13 11/22/22 11:19 Ns IV 11/22/22 11:13 Infused .Q1H1M STA Infusion Promethazine HCl 12.5 mg/ 50.5 mls @ 202 mls/hr 11/22/22 11:43 11/22/22 12:07 Sodium Chloride IV 11/22/22 11:44 Infused ONCE ONE Infusion Ketorolac Tromethamine 30 mg 11/22/22 10:13 11/22/22 10:18 Ketorolac Tromethamine 30 Mg/Ml Vial IVPUSH 11/22/22 10:14 30 mg ONCE ONE Administration Ondansetron HCl 4 mg 11/22/22 10:13 11/22/22 10:18 Ondansetron Hcl 4 Mg/2 Ml Vial IVPUSH 11/22/22 10:14 4 mg ONCE ONE Administration Medical Decision Making Medical Decision Making [facility] Narrative: 32-year-old transgender patient who presents with complaints of vomiting, diarrhea, generalized abdominal pain since 04:00. On exam patient has mild diffuse tenderness. Patient reports took Zofran prior to arrival with continued vomiting. Will obtain labs, viral testing Patient to receive IV fluids, antiemetic, analgesia Differential Diagnosis Differential Diagnoses: The differential diagnosis associated with the presentation includes Likely gastroenteritis, viral syndrome Less likely appendicitis-patient is s/p appendectomy Lab Data [facility] Lab Attestation statement: I reviewed the patient's lab results. 11/22/22 09:26 11/22/22 09:26 Labs: Lab Results 11/22/22 11/22/22 11/22/22 Range/Units 09:26 09:26 09:26 WBC 17.8 H (4.8-10.8) X10*3/uL RBC 5.67 (4.60-5.80) X10*6/uL Hgb 18.1 H (14.0-18.0) g/dl Hct 51.3 (42.0-52.0) % MCV 90.5 (80.0-98.0) fL MCH 31.9 (27.0-33.0) pg MCHC 35.3 (31.0-36.0) g/dl RDW 11.5 (11.0-16.0) % Plt Count 302 (160-400) X10*3/uL MPV 9.2 L (9.4-12.4) fL Immature Gran % (Auto) 0.3 (0.0-0.4) % Neut % (Auto) 93.7 H (45-73) % Lymph % (Auto) 2.4 L (20-40) % Atkinson % (Auto) 3.0 (2-11) % Eos % (Auto) 0.4 (0-4) % Baso % (Auto) 0.2 (0-2) % Lymph # (Auto) 0.4 L (1.2-4.9) X10*3/uL Atkinson # (Auto) 0.5 (0.1-1.2) X10*3/uL Eos # (Auto) 0.1 (0.0-0.4) X10*3/uL Baso # (Auto) 0.0 (0.0-0.2) X10*3/uL Abs Immat Gran (auto) 0.05 H (0.00-0.03) X10*3/uL Absolute Neuts (auto) 16.7 H (2.0-8.3) x10*3/uL Absolute Nucleated RBC 0.000 (0.0-0.012) X10*3/uL Nucleated RBC % (auto) 0.0 (0.0-0.2) /100WBC Smear Tech's Comments VERIFIED Sodium 139 (135-145) mmol/L Potassium 5.0 (3.3-5.1) mmol/L Chloride 107 (96-108) mmol/L Carbon Dioxide 23 (22-29) mmol/L Anion Gap 14 (12-20) BUN 19 H (9-16) mg/dL Creatinine 1.05 (0.5-1.4) mg/dL Estim Creat Clear Calc 91.1 Estimated GFR > 60 Random Glucose 102 (60-115) mg/dL Calcium 9.8 (8.4-10.2) mg/dL Total Bilirubin 1.2 H (0.0-1.0) mg/dL Direct Bilirubin 0.3 (0.0-0.5) mg/dL AST 24 (5-37) U/L ALT 21 (0-40) U/L Alkaline Phosphatase 55 (39-117) U/L Total Protein 7.4 (6.5-8.0) g/dL Albumin 4.8 (3.5-5.0) g/dL COVID-19 (SANCHEZ) (Negative) COVID-19 Clin Com Influenza Type A (CAROL ANN) Negative (Negative) Influenza Type B (CAROL ANN) Positive A (Negative) Influenza A & B Note See Note 11/22/22 Range/Units 09:26 WBC (4.8-10.8) X10*3/uL RBC (4.60-5.80) X10*6/uL Hgb (14.0-18.0) g/dl Hct (42.0-52.0) % MCV (80.0-98.0) fL MCH (27.0-33.0) pg MCHC (31.0-36.0) g/dl RDW (11.0-16.0) % Plt Count (160-400) X10*3/uL MPV (9.4-12.4) fL Immature Gran % (Auto) (0.0-0.4) % Neut % (Auto) (45-73) % Lymph % (Auto) (20-40) % Atkinson % (Auto) (2-11) % Eos % (Auto) (0-4) % Baso % (Auto) (0-2) % Lymph # (Auto) (1.2-4.9) X10*3/uL Atkinson # (Auto) (0.1-1.2) X10*3/uL Eos # (Auto) (0.0-0.4) X10*3/uL Baso # (Auto) (0.0-0.2) X10*3/uL Abs Immat Gran (auto) (0.00-0.03) X10*3/uL Absolute Neuts (auto) (2.0-8.3) x10*3/uL Absolute Nucleated RBC (0.0-0.012) X10*3/uL Nucleated RBC % (auto) (0.0-0.2) /100WBC Smear Tech's Comments Sodium (135-145) mmol/L Potassium (3.3-5.1) mmol/L Chloride (96-108) mmol/L Carbon Dioxide (22-29) mmol/L Anion Gap (12-20) BUN (9-16) mg/dL Creatinine (0.5-1.4) mg/dL Estim Creat Clear Calc Estimated GFR Random Glucose (60-115) mg/dL Calcium (8.4-10.2) mg/dL Total Bilirubin (0.0-1.0) mg/dL Direct Bilirubin (0.0-0.5) mg/dL AST (5-37) U/L ALT (0-40) U/L Alkaline Phosphatase (39-117) U/L Total Protein (6.5-8.0) g/dL Albumin (3.5-5.0) g/dL COVID-19 (SANCHEZ) Negative (Negative) COVID-19 Clin Com See Note Influenza Type A (CAROL ANN) (Negative) Influenza Type B (CAROL ANN) (Negative) Influenza A & B Note Prescription Management I considered prescription management with: Antiviral Would hold on Tamiflu due to expected side effects with patient's current symptoms Discharge Plan Discharge Clinical Impression: Influenza B Patient Disposition: Home, Self-Care Instructions: Influenza (ED) Prescriptions: New promethazine 25 mg suppository 25 mg CA Q6H PRN (Reason: nausea and vomiting) Qty: 12 0RF No Action testosterone 100 mg/mL Suspension 80 mg IM QWEEK Rx Instructions: SUNDAYS oxycodone 5 mg Tablet 5 mg PO Q4H PRN (Reason: Pain, Severe (Pain Scale 7-10)) Qty: 14 0RF Rx Instructions: 1-2 tablets every 4 hours if needed for pain ondansetron 4 mg film 4 mg PO Q8H PRN (Reason: nausea and vomiting) Qty: 5 0RF Interventions: ED Discharge Assessment Last Done: 11/22/22 14:17 Discharge Date/Time: 11/22/22 14:23
[2022-11-22 10:15] LABS: SLIDE REVIEW VERIFIED
[2022-11-22] MEDS: ondansetron HCL 4 MG/2 ML VIAL IVPUSH (10:18)
[2022-11-22] MEDS: Ketorolac Tromethamine 30 MG/ML VIAL IVPUSH (10:18)
[2022-11-22] MEDS: 0.9 % Sodium Chloride 1,000 ML 999 ML IV (10:18)
[2022-11-22] MEDS: diphenhydrAMINE HCL 50 MG/ML VIAL 25 MG IVPUSH (11:51)
== END 2022-11-22 14:23 | disposition home or self-care (01) ==
PROVIDERS: Emergency Provider Emergency Medicine; PCP Nurse Practitioner Family
DX: J10.1 Influenza due to other identified influenza virus with other respiratory manifestations (principal); R11.2 Nausea with vomiting, unspecified; Z20.822 Contact with and (suspected) exposure to COVID-19
CPT/HCPCS: 80048; 80076; 85025; 87502; 87635; 96361; 96374; 96375; 99284; J1200; J1885; J2405; J2550

== ENCOUNTER 2024-03-20 09:59 | Outpatient (AMB) | payer OTHER, SELFPAY ==
--- NOTE | 2024-03-20 10:07 | MHC.OFFWIV ---
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 Intake Note: pt is here for discharge and and itchy and states that its the skin Patient Tobacco Use Status: Never used Tobacco Allergies sulfamethoxazole [From ] Allergy (Verified 03/20/24 10:37) Hives trimethoprim [From ] Allergy (Verified 03/20/24 10:37) Hives Medication List - Last Reconciled 03/20/24 by Alie Bang CNP estradiol (Dorota) patches transdermal testosterone 80 mg IM QWEEK Do you need a note to return to daycare/school/sports/work: Yes HPI HPI Comments History of Present Illness Details 33 YO transgender here with compliant of genital itching and discharge x 3 days, he denies foul smelling discharge, unprotected sex, multiple partners, lesions, mouth sores, fever, chills, CP, SOB, palpitations, dizziness, abdominal pain, nausea, vomiting, hematuria, dysuria or urinary frequency. PFSH Medical History [id number] transgender person Surgical History History of laparoscopic appendectomy History of bilateral mastectomy Acute appendicitis Social History Household Members: Spouse Housing: Apartment Do you presently have visiting nurse or other home services: No Alcohol intake: current Alcohol intake frequency: a few times a month Alcohol type: beer Patient Tobacco Use Status: Never used Tobacco Substance Use Type: Marijuana service: No Current occupational status: employed Review of Systems Const All systems reviewed & are unremarkable except as noted in HPI and below Physical Exam Vital Signs: Last Vital Signs Temp 97.8 F 03/20/24 10:09 Pulse 75 03/20/24 10:09 BP 118/70 03/20/24 10:09 Pulse Ox 98 03/20/24 10:09 Oxygen Delivery Method Room Air 03/20/24 10:09 BMI result Body Mass Index 25.0 Const Other: General: awake, alert, oriented. Answers questions appropriately. Fully engaged in examination. Skin: warm, dry, intact HEENT: TMs intact bilaterally, without erythema or exudate. Posterior pharynx without erythema or exudate. Sclera without icterus or injection. Cardiac: External chest normal in appearance. Respiratory: No cough, audible wheezing or stridor. Abdomen: without gross distension. : No CVA tenderness, vagina and labia erythema, no lesions or open fissures, white non-odorous discharge Neurological: Oriented to person, place, time and situation. Thought process intact. Psychiatric: Appropriate mood and affect. Good judgment and insight. Assessment & Plan Assessment & Plan (1) Candidiasis of genitalia: Code(s): B37.49 - Other urogenital candidiasis Plan: This is a 33-year-old transgender female to male whom was seen in office for c/o 3 days genital itching and discharge. Treat with: - Fluconazole 150 mg po Q3D x 3 doses. - Miconazole nitrate 2% vaginal cream to effected area's on outside genitals. - Keep genitals clean and dry, return to office for any worsening symptoms or unresolved symptoms Medications: New miconazole nitrate 2% 1 appful vaginal BEDTIME 45 grams 0RF 7 days B37.49 - Other urogenital candidiasis fluconazole 150 mg PO Q3D 3 tabs 0RF 3 doses B37.49 - Other urogenital candidiasis Discontinued ondansetron Discontinued Reason: Patient Completed Course 4 mg PO Q8H PRN 5 ea 0RF nausea and vomiting oxycodone 1-2 tablets every 4 hours if needed for pain Discontinued Reason: Patient Completed Course 5 mg PO Q4H PRN 14 tabs 0RF Pain, Severe (Pain Scale 7-10) promethazine Discontinued Reason: Patient Completed Course 25 mg CO Q6H PRN 12 ea 0RF nausea and vomiting Coding Level of Care Code Est Pt Level 2 (26624) Diagnoses Candidiasis of genitalia B37.49
[2024-03-20 10:09] VITALS: BP 118/70; PULSE 75; TEMP 36.6; O2SAT 98; BMI 25.0
== END 2024-03-20 10:53 | disposition home or self-care (01) ==
PROVIDERS: PCP Nurse Practitioner Family; Visit Provider Nurse Practitioner Acute Care
DX: B37.49 Other urogenital candidiasis (principal)
CPT/HCPCS: 99051; 99212